=== PATIENT | female | born 1940 | race Caucasian/White ===

== ENCOUNTER 2017-05-13 21:35 | Emergency (ER) | payer OTHER ==
[~2017-05-13] VITALS: Ht 157.5 cm; Wt 68.0 kg
[2017-05-13 21:44] VITALS: BP 120/84; PULSE 80; RESP 16; TEMP 98.4; O2SAT 99
[2017-05-13] MEDS ORDERED: AMLO10TA2 PO (21:58)
[2017-05-13] MEDS ORDERED: LIPI20TA PO (21:58)
[2017-05-13] MEDS ORDERED: CLON0.2T PO (21:58)
[2017-05-13] MEDS ORDERED: METF500T PO (21:58)
[2017-05-14 03:34] LABS: AUTOMATED NEUTROPHIL # 9.2 TH/MM3 (1.8-7.7); BASOPHIL # 0.1 TH/MM3 (0-0.2); BASOPHIL % 0.5 % (0.0-2.0); EOSINOPHIL # 0.2 TH/MM3 (0-0.4); EOSINOPHIL % 1.4 % (0.0-4.0); HEMATOCRIT 39.6 % (35.0-46.0); HEMO FLAGS DIFF FINAL; LYMPH % 29.8 % (9.0-44.0); LYMPHOCYTE # 4.7 TH/MM3 (1.0-4.8); MEAN CELL VOLUME 83.7 FL (80.0-100.0); MEAN CORPUSCULAR HEMOGLOBIN 27.2 PG (27.0-34.0); MEAN CORPUSCULAR HGB CONC 32.4 % (32.0-36.0); NEUT % 58.3 % (16.0-70.0); PLATELET COUNT 253 TH/MM3 (150-450); RED BLOOD COUNT 4.73 MIL/MM3 (4.00-5.30); RED CELL DISTRIBUTION WIDTH 14.2 % (11.6-17.2); WHITE BLOOD COUNT 15.8 TH/MM3 (4.0-11.0)
[2017-05-14 04:29] LABS: BACTERIA, URINE MOD /hpf; BLOOD, URINE NEG (NEG); COMMENT (UR) CULTURE INDICATED; CULTURE IF INDICATED CULTURE INDICATED; GLUCOSE,URINE NEG (NEG); HYALINE CAST, URINE 10 /lpf (RARE); KETONE, URINE NEG (NEG); MUCUS URINE FEW /lpf (OCC); NITRITE,URINE NEG (NEG); SQUAMOUS EPITHELIAL CELL URINE 2 /hpf (0-5); URINE COLOR YELLOW (YELLW/STRAW)
--- NOTE | 2017-05-14 05:30 | PD ---
HPI Chief Complaint: Psychiatric Symptoms Time Seen by Provider: 05:25 Travel History International Travel<30 days: No Contact w/Intl Traveler<30days: No Traveled to known affect area: No History of Present Illness HPI Patient is a 76-year-old female presents emergency Department under Ginx act. Patient apparently told involved alliance party that she wanted to be with her and was going to go be with him now, and he is recently . She was placed under Ginx act transported to the emergency department. Patient states she is having pain all over secondary to her fibromyalgia. She states usually she goes to [place] for her medical care and didn't want to come here but they brought her here anyways. She denies suicidal ideation at this time but is tearful during exam. She states she's hurting all over which is his normal pain. Denies any blunt trauma dysuria abdominal pain nausea vomiting. PFSH Past Medical History ?: Not Social History Tobacco Use: No Allergies-Medications (Allergen,Severity, Reaction): Coded Allergies: No Known Allergies (Verified Allergy, Unknown, 05/13/17) Reported Meds & Prescriptions Reported Meds & Active Scripts Active Reported Amlodipine (Amlodipine Besylate) 10 Mg Tab 10 Mg PO DAILY Metformin (Metformin HCl) 500 Mg Tab 500 Mg PO TIDPC With meals Clonidine (Clonidine HCl) 0.2 Mg Tab 0.2 Mg PO BID Lipitor (Atorvastatin Calcium) 20 Mg Tab 20 Mg PO HS Review of Systems Except as stated in HPI: all other systems reviewed are Neg Physical Exam Narrative GENERAL: Well-developed well-nourished crying on history. SKIN: Focused skin assessment warm/dry. HEAD: Atraumatic. Normocephalic. EYES: Pupils equal and round. No scleral icterus. No injection or drainage. ENT: No nasal bleeding or discharge. Mucous membranes pink and moist. NECK: Trachea midline. No JVD. CARDIOVASCULAR: Regular rate and rhythm. No murmur appreciated. RESPIRATORY: No accessory muscle use. Clear to auscultation. Breath sounds equal bilaterally. GASTROINTESTINAL: Abdomen soft, non-tender, nondistended. Hepatic and splenic margins not palpable. MUSCULOSKELETAL: No obvious deformities. No clubbing. No cyanosis. No edema. NEUROLOGICAL: Awake and alert. No obvious cranial nerve deficits. Motor grossly within normal limits. Normal speech. PSYCHIATRIC: Denies suicidal or homicidal ideation. Data Data Last Documented VS Vital Signs Date Time Temp Pulse Resp B/P (MAP) Pulse Ox O2 Delivery O2 Flow Rate FiO2 05/13/17 21:44 98.4 80 16 120/84 (96) 99 Orders Orders Complete Blood Count With Diff (05/13/17 22:00) Comprehensive Metabolic Panel (05/13/17 22:00) Urinalysis - C+S If Indicated (05/13/17 22:00) Drug Screen, Random Urine (05/13/17 22:00) Psych Screen (05/13/17 22:00) Urine Culture (05/13/17 22:10) Cephalexin (Keflex) (05/14/17 06:00) Labs Laboratory Tests Test 05/13/17 22:00 05/13/17 22:10 Urine Opiates Screen NEG Urine Barbiturates Screen NEG Urine Amphetamines Screen NEG Urine Benzodiazepines Screen NEG Urine Cocaine Screen NEG Urine Cannabinoids Screen NEG White Blood Count 15.8 TH/MM3 Red Blood Count 4.73 MIL/MM3 Hemoglobin 12.9 GM/DL Hematocrit 39.6 % Mean Corpuscular Volume 83.7 FL Mean Corpuscular Hemoglobin 27.2 PG Mean Corpuscular Hemoglobin Concent 32.4 % Red Cell Distribution Width 14.2 % Platelet Count 253 TH/MM3 Mean Platelet Volume 8.4 FL Neutrophils (%) (Auto) 58.3 % Lymphocytes (%) (Auto) 29.8 % Monocytes (%) (Auto) 10.0 % Eosinophils (%) (Auto) 1.4 % Basophils (%) (Auto) 0.5 % Neutrophils # (Auto) 9.2 TH/MM3 Lymphocytes # (Auto) 4.7 TH/MM3 Monocytes # (Auto) 1.6 TH/MM3 Eosinophils # (Auto) 0.2 TH/MM3 Basophils # (Auto) 0.1 TH/MM3 CBC Comment DIFF FINAL Differential Comment Urine Color YELLOW Urine Turbidity HAZY Urine pH 5.0 Urine Specific [place] 1.020 Urine Protein TRACE mg/dL Urine Glucose (UA) NEG mg/dL Urine Ketones NEG mg/dL Urine Occult Blood NEG Urine Nitrite NEG Urine Bilirubin NEG Urine Urobilinogen 2.0 MG/DL Urine Leukocyte Esterase LARGE Urine RBC 11 /hpf Urine WBC 48 /hpf Urine WBC Clumps FEW Urine Squamous Epithelial Cells 2 /hpf Urine Bacteria MOD /hpf Urine Hyaline Casts 10 /lpf Urine Mucus FEW /lpf Microscopic Urinalysis Comment CULTURE INDICATED MDM Medical Decision Making Medical Screen Exam Complete: Yes Emergency Medical Condition: Yes Differential Diagnosis suicidal ideation, depression, adjustment disorder. Narrative Course Patient roomed emergency department, painful on arrival secondary to chronic pain she was given Roxicodone. Her basic labs including Tylenol CBC CMP are reassuring. She does have urinary tract infection would recommend Keflex 500 mg by mouth every 6 hours for the next 7 days. Otherwise she is medically cleared for psychiatric evaluation and disposition. Diagnosis Primary Impression: UTI (urinary tract infection) Additional Impression: Suicidal ideation Condition: Gonzalo Johnson MD May 14, 2017 05:30
[2017-05-14] MEDS: CEPHALEXIN MONOHYDRATE 500 MG CAP PO SCH ×3 (06:00→18:00)
[2017-05-14 06:14] LABS: ANION GAP 11 MEQ/L (5-15); AST (GOT) 23 U/L (15-37); BICARBONATE 26.4 MEQ/L (21.0-32.0); BLOOD UREA NITROGEN 35 MG/DL (7-18); CHLORIDE 102 MEQ/L (98-107); GLOMERULAR FILTRATION RATE 25 ML/MIN (>89); POTASSIUM 4.2 MEQ/L (3.5-5.1); SODIUM (NA) 139 MEQ/L (136-145)
[2017-05-14 06:17] LABS: ALKALINE PHOSPHATASE 109 U/L (45-117); ALT (GPT) 27 U/L (10-53); TOTAL BILIRUBIN ADULT 0.4 MG/DL (0.2-1.0)
[2017-05-14 06:18] VITALS: BP 150/70; PULSE 93; RESP 18; O2SAT 97
[2017-05-14 13:44] VITALS: BP 142/63; PULSE 65; RESP 16; O2SAT 97
[2017-05-14 23:08] VITALS: BP 112/57; PULSE 75; RESP 18
[2017-05-15] MEDS: CEPHALEXIN MONOHYDRATE 500 MG CAP PO SCH ×3 (00:23→12:30)
[2017-05-15 02:42] VITALS: BP 125/58; PULSE 72; RESP 18
[2017-05-15 06:50] VITALS: BP 148/65; PULSE 69; RESP 20; O2SAT 97
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
[2017-05-15] MEDS ORDERED: CEPH-460 PO (14:03)
--- NOTE | 2017-05-15 14:03 | PD ---
Physical Exam Narrative I was informed by psych nurse that pt's Cruz Act has been lifted by psychiatry. Pt diagnosed with UTI here and there was a note from Dr. Richardson that he wants her to have keflex for 7 days. However, they could not find the prescription and asked me to write it. Pt has been receiving keflex here so will write for 6 days. Pt is tolerating PO. Data Data Last Documented VS Vital Signs Date Time Temp Pulse Resp B/P (MAP) Pulse Ox O2 Delivery O2 Flow Rate FiO2 05/15/17 06:50 69 20 148/65 (92) 97 05/14/17 06:18 Room Air 05/13/17 21:44 98.4 Orders Orders Complete Blood Count With Diff (05/13/17 22:00) Comprehensive Metabolic Panel (05/13/17 22:00) Urinalysis - C+S If Indicated (05/13/17 22:00) Drug Screen, Random Urine (05/13/17 22:00) Psych Screen (05/13/17 22:00) Urine Culture (05/13/17 22:10) Cephalexin (Keflex) (05/14/17 06:00) Diet Regular Basic (05/14/17 Breakfast) Diet Regular Basic (05/15/17 Breakfast) Diet Regular Basic (05/15/17 Lunch) Labs Laboratory Tests Test 05/13/17 22:00 05/13/17 22:10 Urine Opiates Screen NEG Urine Barbiturates Screen NEG Urine Amphetamines Screen NEG Urine Benzodiazepines Screen NEG Urine Cocaine Screen NEG Urine Cannabinoids Screen NEG White Blood Count 15.8 TH/MM3 Red Blood Count 4.73 MIL/MM3 Hemoglobin 12.9 GM/DL Hematocrit 39.6 % Mean Corpuscular Volume 83.7 FL Mean Corpuscular Hemoglobin 27.2 PG Mean Corpuscular Hemoglobin Concent 32.4 % Red Cell Distribution Width 14.2 % Platelet Count 253 TH/MM3 Mean Platelet Volume 8.4 FL Neutrophils (%) (Auto) 58.3 % Lymphocytes (%) (Auto) 29.8 % Monocytes (%) (Auto) 10.0 % Eosinophils (%) (Auto) 1.4 % Basophils (%) (Auto) 0.5 % Neutrophils # (Auto) 9.2 TH/MM3 Lymphocytes # (Auto) 4.7 TH/MM3 Monocytes # (Auto) 1.6 TH/MM3 Eosinophils # (Auto) 0.2 TH/MM3 Basophils # (Auto) 0.1 TH/MM3 CBC Comment DIFF FINAL Differential Comment Urine Color YELLOW Urine Turbidity HAZY Urine pH 5.0 Urine Specific [place] 1.020 Urine Protein TRACE mg/dL Urine Glucose (UA) NEG mg/dL Urine Ketones NEG mg/dL Urine Occult Blood NEG Urine Nitrite NEG Urine Bilirubin NEG Urine Urobilinogen 2.0 MG/DL Urine Leukocyte Esterase LARGE Urine RBC 11 /hpf Urine WBC 48 /hpf Urine WBC Clumps FEW Urine Squamous Epithelial Cells 2 /hpf Urine Bacteria MOD /hpf Urine Hyaline Casts 10 /lpf Urine Mucus FEW /lpf Microscopic Urinalysis Comment CULTURE INDICATED Blood Urea Nitrogen 35 MG/DL Creatinine 1.95 MG/DL Random Glucose 61 MG/DL Total Protein 7.8 GM/DL Albumin 3.9 GM/DL Calcium Level 9.3 MG/DL Alkaline Phosphatase 109 U/L Aspartate Amino Transf (AST/SGOT) 23 U/L Alanine Aminotransferase (ALT/SGPT) 27 U/L Total Bilirubin 0.4 MG/DL Sodium Level 139 MEQ/L Potassium Level 4.2 MEQ/L Chloride Level 102 MEQ/L Carbon Dioxide Level 26.4 MEQ/L Anion Gap 11 MEQ/L Estimat Glomerular Filtration Rate 25 ML/MIN MDM Supervised Visit with BRIAN: No Diagnosis Primary Impression: UTI (urinary tract infection) Qualified Codes: N39.0 - Urinary tract infection, site not specified; R31.9 - Hematuria, unspecified Additional Impression: Adjustment disorder Qualified Codes: F43.23 - Adjustment disorder with mixed anxiety and depressed mood Ruled Out: Suicidal ideation Patient Instructions: General Instructions Departure Forms: Tests/Procedures Additional Instruction: Please follow up with your primary care physician in 3-7 days. Return to the ED if symptoms worsen. Med/Other Pt SpecificInfo: Prescription(s) given Scripts Cephalexin (Keflex) 500 Mg Cap 500 MG PO Q6H for Infection for 6 Days, #24 CAP 0 Refills Prov: Patrizia Egan 05/15/17 Disposition: 01 DISCHARGE HOME Condition: Stable Patrizia Egan May 15, 2017 14:03
[2017-05-15 14:50] VITALS: BP 126/60; TEMP 99
== END 2017-05-15 15:15 | disposition home or self-care (01) ==
LOC: NEPC 21:35 → NEPJ 05-15 15:15
DX: F43.23 Adjustment disorder with mixed anxiety and depressed mood (principal); N39.0 Urinary tract infection, site not specified; B96.1 Klebsiella pneumoniae [K. pneumoniae] as the cause of diseases classified elsewhere
CPT/HCPCS: 80053; 80307; 81001; 85025; 87077; 87086; 87186; 99284